=== PATIENT | female | born 1985 | race Caucasian/White ===

== ENCOUNTER 2018-03-25 13:00 | Emergency (ER) | payer OTHER ==
[~2018-03-25] VITALS: Ht 167.6 cm; Wt 81.6 kg
[2018-03-25] MEDS ORDERED: LAMO25TA5 PO (13:34)
[2018-03-25] MEDS ORDERED: QUET50TA PO (13:34)
[2018-03-25] MEDS ORDERED: HYDROMORPHONE 1 MG/1 ML DISP.SYRIN IM ONE (13:45)
[2018-03-25] MEDS ORDERED: HYDROMORPHONE 2 MG/1 ML DISP.SYRIN ONE (13:45)
[2018-03-25] MEDS ORDERED: ONDANSETRON 4 MG/2 ML VIAL ONE (13:45)
[2018-03-25] MEDS ORDERED: ONDANSETRON 4 MG/2 ML VIAL IM ONE (13:45)
--- NOTE | 2018-03-25 13:55 | NUR ---
Patient discharged to home in stable conditon & steady gait. Written and verbal after care instructions given to patient and patient's family. Patient and family verbalized understanding of instructions.
== END 2018-03-25 14:01 | disposition home or self-care (01) ==
LOC: ER 13:00
DX: G43.909 Migraine, unspecified, not intractable, without status migrainosus (principal)
CPT/HCPCS: 96372 ×2; 99284; A4663; J1170; J2405